=== PATIENT | male | born 1960 | race Caucasian/White ===

== ENCOUNTER 2019-07-19 11:13 | Emergency (ER) | payer BC, SELFPAY ==
[~2019-07-19] VITALS: Ht 177.8 cm; Wt 105.9 kg
[2019-07-19 11:14] VITALS: BP 165/80
[2019-07-19] MEDS ORDERED: AMLO10TA5 (11:23)
[2019-07-19] MEDS ORDERED: LEVO137T2 (11:23)
[2019-07-19] MEDS ORDERED: BENA20TA8 (11:23)
[2019-07-19] MEDS ORDERED: AUGM875T28 PO (11:35)
[2019-07-19] MEDS ORDERED: ADACEL/BOOSTRIX VACCINE (DIPHTH/PERTUSS/ACELL/TETANUS)0.5ML SYR (90715) IM ONE (11:45)
== END 2019-07-19 11:50 | disposition home or self-care (01) ==
LOC: M ED 11:13
DX: S91.331A Puncture wound without foreign body, right foot, initial encounter (principal); W45.0XXA Nail entering through skin, initial encounter; Y92.89 Other specified places as the place of occurrence of the external cause; E07.9 Disorder of thyroid, unspecified; Z79.899 Other long term (current) drug therapy; Z23 Encounter for immunization